=== PATIENT | female | born 1950 | race African-American/Black ===

== ENCOUNTER 2016-08-07 12:00 | Emergency (ER) | payer OTHER, MEDICAID ==
[~2016-08-07] VITALS: Ht 157.5 cm; Wt 89.8 kg
[2016-08-07 13:10] VITALS: BP 142/77
[2016-08-07] MEDS ORDERED: KETOROLAC TROMETH 60MG/2ML VIAL IM ONE (13:45)
== END 2016-08-07 15:07 | disposition home or self-care (01) ==
LOC: ER 12:02
DX: M10.9 Gout, unspecified (principal); M77.31 Calcaneal spur, right foot; I10 Essential (primary) hypertension; F17.210 Nicotine dependence, cigarettes, uncomplicated; Z88.6 Allergy status to analgesic agent
CPT/HCPCS: 73610

== ENCOUNTER 2016-10-27 09:42 | Emergency (ER) | payer OTHER, MEDICAID ==
[~2016-10-27] VITALS: Ht 157.5 cm; Wt 86.2 kg
[2016-10-27 10:13] VITALS: BP 149/82
== END 2016-10-27 13:22 | disposition home or self-care (01) ==
LOC: ER 09:42
DX: M25.562 Pain in left knee (principal); F12.10 Cannabis abuse, uncomplicated; F17.210 Nicotine dependence, cigarettes, uncomplicated; J45.909 Unspecified asthma, uncomplicated; I10 Essential (primary) hypertension; Z88.6 Allergy status to analgesic agent; M19.90 Unspecified osteoarthritis, unspecified site; Z86.718 Personal history of other venous thrombosis and embolism
CPT/HCPCS: 93971

== ENCOUNTER 2019-05-31 22:57 | Emergency (ER) | payer OTHER, MEDICAID ==
[~2019-05-31] VITALS: Ht 170.2 cm; Wt 90.7 kg
[~2019-05-31 22:57] MED LIST: LISI40TA PO
[2019-05-31 23:47] LABS: Basophils # (auto) 0.1 uL; Eosinophils # (auto) 0.2 uL; Eosinophils % (auto) 1.6 % (0.0-7.0); Hematocrit 41.7 % (36.0-46.0); Hemoglobin 13.6 g/dL (12.2-16.2); Lymphocytes # (auto) 1.4 uL; Mean Corpuscular Hemoglobin 27.3 pg (28.0-32.0); Mean Corpuscular Hgb Conc. 32.7 g/dL (32.0-36.0); Mean Corpuscular Volume 83.6 fL (80.0-100.0); Monocytes # (auto) 0.8 uL; Neutrophils # (auto) 7.6 uL; Neutrophils % (auto) 75.4 % (37.0-80.0); Platelet Count (auto) 199 10^3/uL (140-450); Red Blood Cells 4.99 10^6/uL (4.0-5.20); Red Cell Distribution Width 13.8 % (11.8-14.3)
[2019-05-31 23:56] LABS: Urine WBC None Seen /hpf (0 - 5)
[2019-06-01 00:03] LABS: INR 1.03 (0.9-1.15); Partial Thromboplastin Time 28.8 sec (23.64-32.05)
[2019-06-01 00:05] LABS: Alanine Aminotransferase 18 U/L (13-56); Albumin 3.3 g/dL (3.4-5.0); Anion Gap 6 (5-15); Aspartate Aminotransferase 12 U/L (15-37); Blood Urea Nitrogen 20 mg/dL (7-18); Calcium 9.1 mg/dL (8.5-10.1); Carbon Dioxide 24 mmol/L (21-32); Chloride 108 mmol/L (98-107); GFR African American 79 mL/min; GFR Non-African American 65 mL/min; Glucose 100 mg/dL (74-106); Potassium 3.6 mmol/L (3.5-5.1); Sodium 138 mmol/L (136-145)
[2019-06-01 00:10] LABS: Alkaline Phosphatase 77 U/L (45-117); Bilirubin, Total 0.4 mg/dL (0.2-1.0); Total Protein 7.6 g/dL (6.4-8.2)
[2019-06-01 00:22] LABS: Urine Bacteria NONE SEEN /hpf (None Seen); Urine Blood TRACE /uL (Negative); Urine Specific Gravity 1.007 (1.001-1.035)
[2019-06-01] MEDS ORDERED: MECLIZINE HCL 25 MG TAB PO ONE (01:45)
[2019-06-01 05:03] VITALS: BP 159/84
== END 2019-06-01 06:42 | disposition home or self-care (01) ==
LOC: EDBD 22:57 → ER 22:59
DX: R42 Dizziness and giddiness (principal); K04.7 Periapical abscess without sinus; F17.210 Nicotine dependence, cigarettes, uncomplicated; J45.909 Unspecified asthma, uncomplicated; I10 Essential (primary) hypertension; Z90.710 Acquired absence of both cervix and uterus
CPT/HCPCS: 36415; 70450; 70486; 71045; 80053; 81001; 83880; 84484; 85025; 85610; 85730; 93005; 99284; J8597